=== PATIENT | male | born 1995 ===

== ENCOUNTER 2023-06-21 17:03 | Emergency (ER) | payer BC ==
[2023-06-21] MEDS: Amoxicillin/Clavulanate K 875-125 MG Tab PO STA (17:25)
== END 2023-06-21 17:29 | disposition home or self-care (01) ==
LOC: MW.ED 17:03
DX: J01.90 Acute sinusitis, unspecified (principal); B96.89 Other specified bacterial agents as the cause of diseases classified elsewhere; Z75.8 Other problems related to medical facilities and other health care
CPT/HCPCS: 99283; A9270